=== PATIENT | male | born 1995 | race Caucasian/White ===

== ENCOUNTER 2021-04-08 12:31 | Inpatient (IN) | payer MEDICAID, SELFPAY ==
[2021-04-08 12:49] VITALS: BP 119/69; PULSE 85; RESP 19; TEMP 37.2; O2SAT 96
--- NOTE | 2021-04-08 14:36 | PC.NURSE ---
patient has thoughts of harm self, no plan at this time. grandma at bedside.
[2021-04-08 14:37] VITALS: BP 132/84; PULSE 83; RESP 16; O2SAT 99
--- NOTE | 2021-04-08 14:46 | ECG_ITS ---
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 Measurements Intervals [place] Rate: 82 P: 71 ID: [id number] QRS: 71 QRSD: 120 T: 57 QT: 362 QTc: 424 Interpretive Statements SINUS RHYTHM WITH SINUS ARRHYTHMIA POSSIBLE RIGHT VENTRICULAR CONDUCTION DELAY [RSR (QR) IN V1/V2] No previous ECG available for comparison Electronically Signed On 04-08-2021 19:35:09 CDT by Oswald Brunson M.D. [id number]
[2021-04-08 15:11] LABS: Basophils % 0.6 %; Eosinophils # 0.3 10^3/uL (0.0-0.8); Eosinophils % 4.3 %; Hematocrit 48.9 % (42.0-52.0); Hemoglobin 16.1 g/dL (11.7-16.6); Lymphocytes # 1.7 10^3/uL (0.8-4.8); Lymphocytes % 26.3 %; Mean Corpuscular HGB Conc 32.9 g/dL (30.0-36.0); Mean Corpuscular Hemoglobin 30.9 pg (28.0-34.0); Mean Corpuscular Volume 93.9 fl (80-94); Mean Platelet Volume 10.1 fL (7.4-10.4); Monocytes # 0.5 10^3/uL (0.2-0.9); Monocytes % 7.7 %; Neutrophils # 3.86 10^3/uL (1.8-7.7); Neutrophils % 60.9 %; Nucleated Red Blood Cells % 0 %; Platelet Count 221 10^3/cmm (130-400); Red Blood Count 5.21 10^6/uL (4.1-5.3); Red Cell Distribution Width 11.9 % (12.1-15.1); White Blood Count 6.3 10^3/uL (4.0-10.0)
[2021-04-08 15:46] LABS: SARS Covid-2 Antigen Negative (Negative)
[2021-04-08 15:50] LABS: Alanine Aminotransferase 10 U/L (0-41); Albumin Level 4.5 g/dL (3.5-5.2); Alkaline Phosphatase 58 IU/L (40-130); Anion Gap 14.1 (5-19); Aspartate Amino Transferase 14 U/L (0-40); Blood Urea Nitrogen 8 mg/dL (6-20); Calcium 9.3 mg/dL (8.5-10.5); Carbon Dioxide 23 mmol/L (22-29); Chloride 104 mmol/L (98-107); Globulin 3.2 g/dL (1.3-4.6); Glomerular Filtration Rate 135.3 mL/min (90-130); Glucose 85 mg/dL (65-115); Osmolality Calculated 282 mOsm/kg (285-295); Potassium 4.1 mmol/L (3.5-5.1); Sodium 137 mmol/L (136-145); Thyroid Stimulating Hormone 1.13 uIU/mL (0.27-4.20); Total Bilirubin 0.4 mg/dL (0.15-1.2); Total Protein 7.7 g/dL (6.6-8.7)
[2021-04-08 15:51] LABS: Acetaminophen < 5.0 ug/mL (10-30); Alcohol Level < 10 mg/dL (0-10); Salicylate < 0.3 mg/dL (3-10)
--- NOTE | 2021-04-08 16:04 | ED_ITS ---
HPI - Medical Clearance General Chief complaint: Medical Clearance Stated complaint: MHE - SAYS SI/HI ARE POINTLESS NOW Time Seen by Provider: 04/08/21 14:46 Related Information Home Medications Medication Instructions Recorded Confirmed albuterol sulfate 90 mcg/actuation 2 puff INHALATION QID PRN 11/30/20 04/08/21 aerosol inhaler Previous Rx's Medication Instructions Recorded clonazepam 0.25 mg disintegrating 0.25 mg PO DAILY PRN 30 Days #15 04/05/21 tablet tab Allergies Allergy/AdvReac Type Severity Reaction Status Date / Time No Known Allergies Allergy Verified 04/05/21 16:02 Course Vital Signs Temperature 98.9 F 04/08/21 12:49 Pulse Rate 83 04/08/21 14:37 Respiratory Rate 16 04/08/21 14:37 Blood Pressure 132/84 04/08/21 14:37 Pulse Oximetry 99 04/08/21 14:37 MDM - Medical Clearance Lab Data Result diagrams: 04/08/21 15:00 04/08/21 15:00 Labs: Lab Results 04/08/21 04/08/21 04/08/21 Range/Units 15:00 15:00 15:30 WBC 6.3 (4.0-10.0) 10^3/uL RBC 5.21 (4.1-5.3) 10^6/uL Hgb 16.1 (11.7-16.6) g/dL Hct 48.9 (42.0-52.0) % MCV 93.9 (80-94) fl MCH 30.9 (28.0-34.0) pg MCHC 32.9 (30.0-36.0) g/dL RDW 11.9 L (12.1-15.1) % Plt Count 221 (130-400) 10^3/cmm MPV 10.1 (7.4-10.4) fL Neut % (Auto) 60.9 % Lymph % (Auto) 26.3 % [place] % (Auto) 7.7 % Eos % (Auto) 4.3 % Baso % (Auto) 0.6 % Neut # (Auto) 3.86 (1.8-7.7) 10^3/uL Lymph # (Auto) 1.7 (0.8-4.8) 10^3/uL [place] # (Auto) 0.5 (0.2-0.9) 10^3/uL Eos # (Auto) 0.3 (0.0-0.8) 10^3/uL Baso # (Auto) 0.0 (0.0-0.1) 10^3/uL Nucleated RBC % (auto) 0 % Nucleated RBCs # 0.0 /100WBC Sodium 137 (136-145) mmol/L Potassium 4.1 (3.5-5.1) mmol/L Chloride 104 (98-107) mmol/L Carbon Dioxide 23 (22-29) mmol/L Anion Gap 14.1 (5-19) BUN 8 (6-20) mg/dL Creatinine 0.7 (0.7-1.2) mg/dL GFR Calculation 135.3 H (90-130) mL/min Glucose 85 (65-115) mg/dL Calculated Osmolality 282 L (285-295) mOsm/kg Calcium 9.3 (8.5-10.5) mg/dL Total Bilirubin 0.4 (0.15-1.2) mg/dL AST 14 (0-40) U/L ALT 10 (0-41) U/L Alkaline Phosphatase 58 (40-130) IU/L Total Protein 7.7 (6.6-8.7) g/dL Albumin 4.5 (3.5-5.2) g/dL Globulin 3.2 (1.3-4.6) g/dL TSH 1.13 (0.27-4.20) uIU/mL Salicylates < 0.3 L (3-10) mg/dL Acetaminophen < 5.0 L (10-30) ug/mL Ethyl Alcohol < 10 (0-10) mg/dL SARS-CoV-2 Ag (Rapid) Negative (Negative) Discharge Plan Discharge Prescriptions: No Action clonazepam 0.25 mg tablet,disintegrating 0.25 mg PO DAILY PRN (Reason: anxiety) 30 Days Qty: 15 RF: 1 albuterol sulfate 90 mcg/actuation HFA aerosol inhaler 2 puff inhalation QID PRN (Reason: Shortness Of Breath) RF: 0
--- NOTE | 2021-04-08 16:05 | ED_ITS ---
HPI - Psych General: Chief Complaint: Medical Clearance Stated Complaint: MHE - SAYS SI/HI ARE POINTLESS NOW Time Seen by Provider: 04/08/21 14:46 History of Present Illness: HPI Narrative: Patient is a 26-year-old male with no significant medical or psychiatric history. He is here wishing to be admitted to our psychiatric unit. He denies being suicidal or homicidal. States occasionally he thinks about wanting to but states that he is a [employer] and has a many people who depend upon him and does not have any intention of following through. Does not have a plan and no previous history of suicide attempts. He is not homicidal. States that really what he needs is about 4 or 5 days worth of rest. States that he tends to be the outlet for other people's issues and is tired of that. Denies hallucinations or commands. Denies any manic behavior. Is not on any psychiatric medications and does not have a formal diagnosis Denies fevers chills chest pain nausea vomiting shortness of breath cough abdominal pain rash mental status changes syncope or headache Review of Systems General: Reports: 10 or more systems reviewed and unremarkable except in HPI and below PFSH ED PFSH: Medical History Asthma Autistic disorder HÉCTOR (generalized anxiety disorder) Surgical History No pertinent past surgical history Family History Grandmother Hypertension COPD with asthma Mother Bipolar 1 disorder with moderate mariely Social History Smoking and tobacco status: former smoker Quit status (tobacco): has quit using tobacco Year quit tobacco: 2019 Second hand smoke exposure: Yes Alcohol intake: never Lives independently: Yes Household members: other Details: has a couple of room mates Housing: House Marital status: Single Physical Exam Const: COMMON NORMALS: no acute distress, average body habitus and patient oriented x3 HENMT: COMMON NORMALS: normocephalic and atraumatic HEAD & SCALP: normocephalic and atraumatic Eye: COMMON NORMALS: Equal, round and reactive pupils present and EOMs intact bilaterally PUPIL: Yes Equal, round and reactive pupils present Resp: COMMON NORMALS: normal respiratory effort, No retractions and No use of accessory muscles Cardio: COMMON NORMALS: regular rate, regular rhythm and No murmurs present (Cardio) RATE: regular rate RHYTHM: regular rhythm GI: COMMON NORMALS: Normal to inspection, nondistended, normoactive bowel sounds present Extremity: COMMON NORMALS: normal to inspection and full ROM Neuro: COMMON NORMALS: patient oriented x3, moves all extremities and no focal motor deficits Psych: COMMON NORMALS: mental status grossly normal, Normal thought process present, cooperative, normal affect, speech normal, denies homicidal ideation and denies suicidal ideation APPEARANCE: Yes grossly normal ATTITUDE: Yes calm and Yes engaged ACTIVITY/MOTOR BEHAVIOR: Yes appropriate eye contact SPEECH: Yes normal speech MOOD & AFFECT: Yes euthymic mood THOUGHT PROCESS: Normal thought process present THOUGHT CONTENT: Yes Normal thought content present ATTENTION/CONCENTRATION: Yes attention grossly intact Skin: COMMON NORMALS: no rashes or lesions noted GENERAL SKIN EXAM: no rashes or lesions noted Course ED course: Patient is not currently a risk to himself or anybody else. Mostly he just needs a break from life. I did discuss with him that may be difficult to place him but would certainly allow him a chance to talk to the psychiatrist. We will get basic labs on him for medical clearance. He will be allowed to leave on his own if he wishes to Spoke to psychiatrist on-call who agrees for an observation admission and he will talk to them tomorrow about further plan. Discussed with the patient and he agrees as long as he can have a nicotine patch Vital Signs: Vital signs: Vital Signs Temperature 98.9 F 04/08/21 12:49 Pulse Rate 83 04/08/21 14:37 Respiratory Rate 16 04/08/21 14:37 Blood Pressure 132/84 04/08/21 14:37 Pulse Oximetry 99 04/08/21 14:37 MDM - Psych MDM Narrative: Medical decision making narrative: Differential includes suicidal ideation depression anxiety malingering Lab Data: Labs: Lab Results 04/08/21 04/08/21 04/08/21 Range/Units 15:00 15:00 15:30 WBC 6.3 (4.0-10.0) 10^3/ uL RBC 5.21 (4.1-5.3) 10^6/u L Hgb 16.1 (11.7-16.6) g/dL Hct 48.9 (42.0-52.0) % MCV 93.9 (80-94) fl MCH 30.9 (28.0-34.0) pg MCHC 32.9 (30.0-36.0) g/dL RDW 11.9 L (12.1-15.1) % Plt Count 221 (130-400) 10^3/c mm MPV 10.1 (7.4-10.4) fL Neut % (Auto) 60.9 % Lymph % (Auto) 26.3 % [place] % (Auto) 7.7 % Eos % (Auto) 4.3 % Baso % (Auto) 0.6 % Neut # (Auto) 3.86 (1.8-7.7) 10^3/u L Lymph # (Auto) 1.7 (0.8-4.8) 10^3/u L [place] # (Auto) 0.5 (0.2-0.9) 10^3/u L Eos # (Auto) 0.3 (0.0-0.8) 10^3/u L Baso # (Auto) 0.0 (0.0-0.1) 10^3/u L Nucleated RBC % (a uto) 0 % Nucleated RBCs # 0.0 /100WBC Sodium 137 (136-145) mmol/L Potassium 4.1 (3.5-5.1) mmol/L Chloride 104 (98-107) mmol/L Carbon Dioxide 23 (22-29) mmol/L Anion Gap 14.1 (5-19) BUN 8 (6-20) mg/dL Creatinine 0.7 (0.7-1.2) mg/dL GFR Calculation 135.3 H (90-130) mL/min Glucose 85 (65-115) mg/dL Calculated Osmolal ity 282 L (285-295) mOsm/k g Calcium 9.3 (8.5-10.5) mg/dL Total Bilirubin 0.4 (0.15-1.2) mg/dL AST 14 (0-40) U/L ALT 10 (0-41) U/L Alkaline Phosphata se 58 (40-130) IU/L Total Protein 7.7 (6.6-8.7) g/dL Albumin 4.5 (3.5-5.2) g/dL Globulin 3.2 (1.3-4.6) g/dL TSH 1.13 (0.27-4.20) uIU/ mL Salicylates < 0.3 L (3-10) mg/dL Acetaminophen < 5.0 L (10-30) ug/mL Ethyl Alcohol < 10 (0-10) mg/dL SARS-CoV-2 Ag (Rap id) Negative (Negative) Discharge Plan Discharge Prescriptions: No Action clonazepam 0.25 mg tablet,disintegrating 0.25 mg PO DAILY PRN (Reason: anxiety) 30 Days Qty: 15 RF: 1 albuterol sulfate 90 mcg/actuation HFA aerosol inhaler 2 puff inhalation QID PRN (Reason: Shortness Of Breath) RF: 0 Coding Level of Care Code ED Quill Cleaning Machine Operator for Chg Fwd Exam Comprehensive
[2021-04-08] MEDS: nicotine 21 mg Patch 1 PATCH TRANSDERMA (16:27)
[2021-04-08 16:29] VITALS: BP 137/82; PULSE 66; RESP 16; O2SAT 97
[2021-04-08 17:27] VITALS: BP 126/66; PULSE 90; RESP 16; TEMP 36.7; O2SAT 99
[2021-04-08 18:28] VITALS: BP 132/67; PULSE 69; RESP 18; TEMP 36.6; O2SAT 97
[2021-04-08 20:36] VITALS: BP 152/78; PULSE 96; RESP 17; TEMP 36.6; O2SAT 98
[2021-04-09 06:00] VITALS: BP 113/68; PULSE 77; RESP 16; TEMP 36.4; O2SAT 99
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
[2021-04-09] MEDS: nicotine 21 mg Patch 1 PATCH TRANSDERMA (09:05)
[2021-04-09 14:00] VITALS: BP 103/72; PULSE 65; RESP 18; TEMP 36.3; O2SAT 96
[2021-04-09] MEDS: hyDROXYzine 25 mg Capsule 50 MG PO (20:30)
[2021-04-09] MEDS: trazodone 50 mg Tablet PO (20:31)
[2021-04-09 20:34] VITALS: BP 130/75; PULSE 81; RESP 20; TEMP 36.6; O2SAT 95
[2021-04-09 23:08] VITALS: PULSE 84; RESP 16; O2SAT 98
[2021-04-10 06:00] VITALS: BP 118/63; PULSE 58; RESP 19; TEMP 36.9; O2SAT 95
--- NOTE | 2021-04-10 10:11 | P.PN_ITS ---
Subjective NPU Subjective: Interval history: Chay presents today reporting that he feels that his break has been sufficient. We discussed this health technical writer's concerns about the status that he may which he had reported that it was just that this health technical writer had woken him up with letting him saying some things that were less than flattering. He then went on to express that he is kind and would never hurt anyone and was just venting. We agreed that we would work with the treatment team the morning to make sure he has appointments for aftercare and that we can get collateral information from some the people in his life. Mental Status Exam MSE Comments: This is a well-nourished, well-developed white male in hospital scrubs with limited grooming and eye contact. No abnormal movements. Cooperative with exam in no acute distress. Speech was normal rate and normal volume. Mood described as better, affect congruent. Thought process organized. Thought content: Patient denied suicidal or homicidal ideation, he endorses feeling less paranoid and does seem less guarded, he denied auditory or visual hallucinations. Attention and concentration are intact and memory is unreliable at times but never formally tested. Alert and oriented x3. Insight and judgment are limited and involved control is limited. 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 1. Continue current medication. 2. Continue every 15 minute checks for safety. 3. Encourage individual, group and milieu therapies. 4. Explore records and connect with outside providers to determine if his commentary is pejorative or if the risk level is higher. 5. We will work with the treatment team the morning to get collateral information to have a better sense of his wrist level. Involuntary Hold Information 96 Hour Hold: 96 Hour Involuntary Admission: No Attestations NPU Medical Necessity Statement*: Inpatient hospitalization is medically necessary and the clinically appropriate intervention at this time. We will monitor medications and make changes as indicated. Likely length of stay 1-3 days. Coding Level of Care Code Acute Medical Lead for Jesenia Hidalgo
[2021-04-10 14:00] VITALS: BP 89/52; PULSE 73; RESP 14; TEMP 36.7; O2SAT 95
[2021-04-10 20:40] VITALS: PULSE 89; RESP 16; O2SAT 97
[2021-04-10] MEDS: albuterol 8 gm MDI 2 PUFF INHALATION (20:40)
[2021-04-10 20:41] VITALS: BP 124/87; PULSE 97; RESP 20; TEMP 36.6; O2SAT 94
[2021-04-10] MEDS: hyDROXYzine 25 mg Capsule 50 MG PO (22:57)
[2021-04-10] MEDS: trazodone 50 mg Tablet PO (22:58)
[2021-04-11 06:00] VITALS: BP 97/56; PULSE 58; RESP 17; TEMP 36.6; O2SAT 96
[2021-04-11] MEDS: nicotine 21 mg Patch 1 PATCH TRANSDERMA (10:05)
[2021-04-11 13:53] VITALS: BP 111/81; PULSE 83; RESP 16; TEMP 36.3; O2SAT 96
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
[2021-04-11 16:03] VITALS: BP 111/81; PULSE 83; RESP 16; TEMP 36.3; O2SAT 96
== END 2021-04-11 16:28 | disposition home or self-care (01) | DRG 880 ==
LOC: ER 14:46 → NP 16:45
PROVIDERS: Admitting Provider Psychiatry & Neurology Psychiatry; Emergency Provider Family Medicine; PCP Family Medicine; Visit Provider Psychiatry & Neurology Psychiatry
DX: F41.1 Generalized anxiety disorder (principal); F84.0 Autistic disorder; J45.909 Unspecified asthma, uncomplicated; Z87.891 Personal history of nicotine dependence; F39 Unspecified mood [affective] disorder; F60.89 Other specific personality disorders; Z79.51 Long term (current) use of inhaled steroids
CPT/HCPCS: 80053; 80307; 84443; 85025; 87426; 93005; 94640; 99285; G0378; J3535

== ENCOUNTER 2025-07-18 13:45 | Emergency (ER) | payer MEDICAID, SELFPAY ==
[2025-07-18 13:51] VITALS: BP 136/96; PULSE 98; RESP 16; TEMP 36.9; O2SAT 100; BMI 23.7
--- NOTE | 2025-07-18 13:52 | XRR_ITS ---
PROCEDURE INFORMATION: Exam: XR Left Hand Exam date and time: 07/18/2025 1:52 PM Age: 30 years old Clinical indication: Injury or trauma; Other: Hit lt hand; Blunt trauma (contusions or hematomas); Left TECHNIQUE: Imaging protocol: Radiologic exam of the left hand. Views: 3 or more views. COMPARISON: No relevant prior studies available. FINDINGS: Bones/joints: There is a comminuted fracture of the proximal diaphysis of the 5th metacarpal with mild diastasis of the small comminuted fracture fragments. The hand is otherwise normal. Soft tissues: Medial soft tissue swelling. XR/XR hand LT min 3V* [id number] IMPRESSION: Fracture at the base of the 5th metacarpal.
--- OUTSIDE RECORDS SUMMARY | 2025-07-18 13:52 | XMS_ITS | Encounter Summary ---
Author Organization [facility] Address [address] [place] [address] Care Team Providers Care Cabinetmaker Maintenance Name Role Phone Unavailable Primary Care Provider Unavailabl e Encounter Details Date Type Department Care Team (Latest Contact Info) Description 05/23/2000 Outpatient Historical [facility] Th[facility] 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
--- OUTSIDE RECORDS SUMMARY | 2025-07-18 13:52 | XMS_ITS | Encounter Summary ---
Author Organization [employer] Address [address] 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
--- OUTSIDE RECORDS SUMMARY | 2025-07-18 13:52 | XMS_ITS | Encounter Summary ---
Author Organization [employer] Address [address] 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
--- OUTSIDE RECORDS SUMMARY | 2025-07-18 13:52 | XMS_ITS | Clinical Summary ---
Author Organization [employer] Address [address] Han: Epic Prelude ADT [place] [address] Care Team Providers Care Counter Helper Name Role Phone Unavailable Primary Care Provider Unavailabl e Immunizations Immunization Administration Dates Next Due (M-M-R II/PRIORIX)(12 MO UP) MEASLES, MUMPS AND RUBELLA VIRUS VACCINE, 0.5 ML IM/SUBCUT 01/25/1999,03/30/1995 Dt Dtp Dtap Vaccine 01/25/1999, 5,1994,1994,1994 HIB, Unspecified Formulation 03/30/1995, 1994,1994,1993 Hepatitis B Vaccine 1994,1994,1993 IPV/OPV 03/30/1995, 5,1994,1993 Social History Tobacco Use Types Packs/Day Years Used Date Smoking Tobacco: Never Assessed Sex and Gender Information Value Date Recorded Sex Assigned at Not on file 

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
[2025-07-18] MEDS: HYDROcodone-acetaminophen 5-325 mg Tablet 1 TAB PO (14:11)
[2025-07-18 14:24] VITALS: BP 120/86; PULSE 90; RESP 16; O2SAT 100
--- NOTE | 2025-07-20 07:57 | DCPLANNER ---
messaged ortho for er f/u
== END 2025-07-18 14:23 | disposition home or self-care (01) ==
PROVIDERS: Emergency Provider Emergency Medicine; PCP Family Medicine
DX: S63.33 Traumatic rupture of ulnocarpal (palmar) ligament (principal); Z87.891 Personal history of nicotine dependence; W22.09XA Striking against other stationary object, initial encounter
CPT/HCPCS: 29125; 73130; 99283; J9999

== ENCOUNTER → 2025-07-21 08:10 | Outpatient (BNVA) | payer SELFPAY | PROVIDERS: PCP Family Medicine; Visit Provider Student in an Organized Health Care Education/Training Program | DX: S62.337A Displaced fracture of neck of fifth metacarpal bone, left hand, initial encounter for closed fracture (principal); S62.345A Nondisplaced fracture of base of fourth metacarpal bone, left hand, initial encounter for closed fracture; W01.0XXA Fall on same level from slipping, tripping and stumbling without subsequent striking against object, initial encounter | CPT/HCPCS: 73130 ==

== ENCOUNTER 2025-07-21 09:42 | Outpatient (CLI) | payer SELFPAY | END 2025-07-21 09:43 | disposition home or self-care (01) | LOC: SPT 09:42 | PROVIDERS: PCP Family Medicine; Visit Provider Student in an Organized Health Care Education/Training Program | DX: Z46.89 Encounter for fitting and adjustment of other specified devices (principal); S62.337D Displaced fracture of neck of fifth metacarpal bone, left hand, subsequent encounter for fracture with routine healing; X58.XXXD Exposure to other specified factors, subsequent encounter | CPT/HCPCS: L3984 ==